=== PATIENT | male | born 1970 | race Caucasian/White ===

== ENCOUNTER 2017-10-10 08:52 | Inpatient (IN) | payer BC, OTHER ==
[~2017-10-10] VITALS: Ht 175.3 cm; Wt 79.4 kg
[2017-10-10] MEDS ORDERED: LOPERAMIDE HCL 2 MG CAPSULE PO PRN ×2 (09:45)
[2017-10-10] MEDS ORDERED: LORAZEPAM 1 MG TABLET PO PRN ×2 (09:45)
[2017-10-10] MEDS ORDERED: MIRALAX 17 GM POWD.PACK PO PRN (09:45)
[2017-10-10] MEDS ORDERED: THIAMINE HCL 200 MG/2 ML VIAL IM ONE (09:45)
[2017-10-10] MEDS ORDERED: IBUPROFEN 600 MG TABLET PO PRN (09:45)
[2017-10-10] MEDS ORDERED: ONDANSETRON ODT 4 MG TAB.RAPDIS SL PRN (09:45)
[2017-10-10] MEDS ORDERED: DICYCLOMINE HCL 20 MG TABLET PO PRN (09:45)
[2017-10-10] MEDS ORDERED: LORAZEPAM 2 MG/1 ML VIAL IM PRN (09:45)
[2017-10-10] MEDS ORDERED: MAGNESIUM HYDROXIDE 30 ML LIQUID UDC PO PRN (09:45)
[2017-10-10] MEDS ORDERED: ACETAMINOPHEN 325 MG TABLET PO PRN (09:45)
[2017-10-10] MEDS ORDERED: diphenhydrAMINE 50 MG CAPSULE PO PRN (09:45)
[2017-10-10] MEDS ORDERED: ONDANSETRON 4 MG/2 ML VIAL IM PRN (09:45)
[2017-10-10] MEDS ORDERED: MAG HYDROX/AL HYDROX/SIMETH 30 ML LIQUID UDC PO PRN (09:45)
--- NOTE | 2017-10-10 09:50 | NUR ---
Preadmission Note: Pt is 47M, AOx4. Pt reported NKA. Pt observed to be very anxious, with racing thoughts but still motivated to be in treatment. Pt stable at this time and able to answer assessment questions. Pt reports hx of drinking white wine. No medical hx or previous seizures reported. Instructed pt about unit policies and procedures. Pt verbalized understanding. Will admit to [facility].
--- NOTE | 2017-10-10 10:00 | NUR ---
Admission Assessment; Patient is a 47 year old male, A/O x4, appears well nourished and is dressed appropriately. Patient admitted to [facility] for medically supervised withdrawal from ETOH. Patient appears nervous, anxious, flushed face noted, intermittent perspiration,Tremors noted, teary eyes, Appears older than age stated. Patient has poor eye contact, fearful, worried,verbalized feelings of guilt and shame but remained cooperative during nurse assessment. Patient denies history of hypertension/cardiac disorder, patient verbalized "I am very nervous right now, my vital signs might be elevated but it's usually WNL". Admitting vital signs are as follows; BP 142/90, HR 120, Temperature 97.6, respirations of 18, Spo2 98% on room air, denies pain. Patient denies history of seizures and denies any allergies. Discussed substance use history. Patient started drinking ETOH when he was 17 year old, progressed to daily use 3 years ago. Since then he has been drinking White Wine approximately 1-3 bottles /day (750ml bottle), last drank 10/09/17 at 7PM patient reported drinking 2 750ml bottles of wine last night. Patient struggled with multiple attempts on achieving sobriety. Patient achieved 5 years of sobriety from [id number]. Most recent sobriety was from 2017 until September 27, 2017. At this rate patient has been drinking on daily basis for the past 2 weeks. During his periods of sobriety patient experienced tremors, anxiety and agitation. Patient has never been to detox or outpatient treatment before. Patient stated "I enjoy drinking wine after a long day of work, but for the past 2 weeks i have been drinking a lot more. Drinking ETOH has been affecting my work performance and i cannot let this addiction affect my career, i worked hard to be in my position . I need help, i need to fix my life". Triggers for relapse includes, availability of ETOH. Patient also stated "Also my friends are alcoholics". Patient is open to post treatment discharge options and is motivated to remain sober. Discussed medical and psychiatric history. He reported that he is taking Multivitamin 1 tab PO daily and Fish oil 1000mg daily for supplement. Patient did not bring medications mentioned. Patient reported family history of diabetes and hypertension. Patient denies other medical /psychiatric condition. Skin check done. Small redness noted on back of patient right leg, site is intact. Bruised toe also noted on patient's left foot. Site is intact. Oriented patient to unit. Educated patient regarding the importance of compliance to unit protocol and policies, patient verbalized understanding. He denies having PCP or psychiatrist. Patient is admitted to room 329 under the care of Dr. Pruett. Patient is currently showing s/s of withdrawals with CIWA score of 14, reported to MD. All safety measures secured. Will continue to monitor patient. Addendum: 10/10/17 at 1544 by MEHUL HARDEN LVN Patient denies suicidal ideations.
--- NOTE | 2017-10-10 10:05 | NUR ---
PRN Medication; Patient is currently showing s/s of withdrawals manifested by increased anxiety, restlessness, agitation, intermittent perspiration, stomach cramps, visible tremors, headache, unable to sit still, difficulty concentrating, racing thoughts with CIWA score of 14. made aware. ordered PRN Ativan 1mg PO for CIWA of 14. All safety measures secured. Will continue to monitor patient.
[2017-10-10 10:22] LABS: BASOPHILS # (AUTO) 0.1 K/uL (0.0-8.0); BASOPHILS % (AUTO) 1.4 % (0.0-2.0); EOSINOPHILS % (AUTO) 0.7 % (0.0-7.0); HEMATOCRIT 46.1 % (36.7-47.1); HEMOGLOBIN 15.7 g/dL (12.5-16.3); LYMPHOCYTES # (AUTO) 1.2 K/uL (20.0-40.0); LYMPHOCYTES % (AUTO) 19.8 % (20.5-51.5); MEAN CORPUSCULAR HEMOGLOBIN 31.7 uug (23.8-33.4); MEAN CORPUSCULAR HGB CONC 34 g/dL (32.5-36.3); MEAN CORPUSCULAR VOLUME 92.8 fL (73.0-96.2); MONOCYTES # (AUTO) 0.5 K/uL (2.0-10.0); MONOCYTES % (AUTO) 7.4 % (0.0-11.0); NEUTROPHILS # (AUTO) 4.4 K/uL (1.8-8.9); NEUTROPHILS % (AUTO) 70.7 % (38.5-71.5); PLATELET COUNT (AUTO) 65 K/uL (152-348); RED BLOOD CELL COUNT(AUTO) 4.97 MIL/uL (4.06-5.63); WHITE BLOOD COUNT (AUTO) 6.2 K/uL (3.6-10.2)
[2017-10-10 10:27] LABS: *AMPHETAMINE, URINE NEGATIVE (NEGATIVE); *BARBITURATE, URINE NEGATIVE (NEGATIVE); *CANNABINOID, URINE NEGATIVE (NEGATIVE); *COCCAINE, URINE NEGATIVE (NEGATIVE); *OPIATE, URINE NEGATIVE (NEGATIVE); *PHENCYCLIDINE SCREEN,URINE NEGATIVE (NEGATIVE)
[2017-10-10 10:36] LABS: BILIRUBIN,TOTAL 0.8 mg/dL (0.2-1.0); CREATININE 0.9 mg/dL (0.6-1.3); MAGNESIUM 1.5 mg/dL (1.8-2.4); POTASSIUM 3.1 mmol/L (3.5-5.1)
[2017-10-10 10:47] LABS: THYROID STIMULATING HORMONE 1.156 mIU/mL (0.358-3.740)
--- NOTE | 2017-10-10 11:05 | NUR ---
Re-assessment; Patient current CIWA score remained elevated manifested by anxiety, agitation, intermittent perspiration, stomach cramps, tremors headache, difficulty concentrating. MD on unit to evaluate patient.
[2017-10-10] MEDS ORDERED: MULT1TAB73 PO (11:22)
[2017-10-10] MEDS ORDERED: OMEG1CAP GT (11:22)
[2017-10-10 12:00] VITALS: BP 138/95
--- NOTE | 2017-10-10 12:00 | NUR ---
CIWA assessment; Patient is currently showing s/s of withdrawals manifested by increased anxiety, restlessness, agitation, intermittent perspiration, stomach cramps, visible tremors, headache, unable to sit still, difficulty concentrating, racing thoughts with CIWA score of 13. Patient received PRN medication to help reduce withdrawal symptoms.
[2017-10-10 12:19] LABS: BAND % (MANUAL) 2 % (0-10); EOSINOPHILS % (MANUAL) 1 % (0-8); LYMPHOCYTES % (MANUAL) 21 % (20-40); MONOCYTES % (MANUAL) 6 % (2-10); NEUTROPHILS % (MANUAL) 70 % (42-75)
[2017-10-10] MEDS ORDERED: 5 DAY TAPER OF LORAZEPAM -SERENITY PROTOCOL PO PRN (12:45)
[2017-10-10] MEDS ORDERED: POTASSIUM CHLORIDE 20 MEQ TAB.PRT.SR PO ONE (13:00)
[2017-10-10] MEDS ORDERED: MAGNESIUM OXIDE 400 MG TABLET PO ONE (13:00)
[2017-10-10] MEDS: LORAZEPAM 1 MG TABLET PO SCH ×3 (13:25→22:03)
--- NOTE | 2017-10-10 13:25 | NUR ---
K-dur, magnesium and taper medication; Patient's potassium level is low 3.1 and magnesium level of 1.5. MD made aware. MD ordered K-dur 40meq PO one time and Mag-ox 400mg PO one time for supplement. MD also started patient on 4 day Ativan taper to help prevent withdrawal symptoms. Medications given as ordered.
[2017-10-10 16:00] VITALS: BP 145/92
--- NOTE | 2017-10-10 16:00 | NUR ---
CIWA assessment; Patient is currently showing s/s of withdrawals manifested by increased anxiety, restlessness, agitation, intermittent perspiration, stomach cramps, visible tremors, headache, unable to sit still, difficulty concentrating, racing thoughts , headache with CIWA score of 16. Patient received PRN and scheduled medications to help reduce withdrawal symptoms. Patient was also started on a 5 day Ativan taper. Will continue to monitor patient.
--- NOTE | 2017-10-10 18:39 | NUR ---
End of shift note; Patient is AOX4, presented with anxiety, restlessness, agitation, intermittent perspiration, stomach cramps, visible tremors, headache, unable to sit still, difficulty concentrating, racing thoughts , headache, last CIWA score of 18 noted at 1600. Patient was started on a 4 day Ativan taper to help manage withdrawal symptoms. Patient received PRN Ativan 1mg for CIWA of 14 noted to be effective. Potassium and magnesium were supplemented by K-dur and Mag -ox per MD order. Patient remained compliant with treatment plan and medication regime. Encouraged patient to verbalized feelings and to report any further s/s of withdrawals. Medications were effective in reducing withdrawal symptoms. All safety measures secured. Met all needs.
--- NOTE | 2017-10-10 19:25 | NUR ---
START OF SHIFT Patient is a 47-year-old male admitted this morning, 10/10/17, for ETOH withdrawal. Patient is currently on a 4-day Ativan taper, tolerating well. Patients last CIWA was 18 per endorsement. Patient received PRN Ativan 1mg once today; noted to be effective. Upon assessment, patient appears flushed, disheveled and diaphoretic. Patient has gross tremors and is visibly tired. Patient is alert and oriented x4 and his gait is mostly steady but patient needs to walk slowly to keep his balance. Patient is quiet and withdrawn. Patient is on fall and seizure precautions with no history of seizure. Safety measures in place, side rails up x2, bed locked in low position, call light within reach. Will continue to monitor.
[2017-10-10 20:00] VITALS: BP 146/98
--- NOTE | 2017-10-10 20:00 | NUR ---
CIWA DEFERRED CIWA deferred at this time due to patient sleeping; to be assessed and scored while patient is awake. Safety measures in place, side rails up x2, bed locked in low position, call light within reach. Will continue to monitor.
--- NOTE | 2017-10-10 22:00 | NUR ---
CIWA 21 Patient is awake and requested snacks from the kitchen. Patient is diaphoretic, flushed, and tremulous. Patient reports "moderate tingling" around his nose and cheeks. Current CIWA is 21. SN to administer meds as ordered. Safety measures in place, call light within reach. Will continue to monitor.
[2017-10-10] MEDS: CLONIDINE HCL 0.1 MG TABLET PO PRN (22:03)
--- NOTE | 2017-10-10 22:03 | NUR ---
PRN CLONIDINE Patient has a BP of 146/98, HR 101. PRN Clonidine given PO. Safety measures in place, side rails up x2, bed locked in low position, call light within reach. Will monitor for effectiveness.
--- NOTE | 2017-10-10 23:03 | NUR ---
PRN CLONIDINE REASSESSMENT Patient has a BP of 124/82, HR 94. PRN Clonidine was effective. Safety measures in place, side rails up x2, bed locked in low position, call light within reach. Will continue to monitor.
[2017-10-11] VITALS: BP_SYST 121; BP_SYST 135; BP_DIAS 78; BP_DIAS 89
--- NOTE | 2017-10-11 | NUR ---
CIWA DEFERRED CIWA deferred due to patient sleeping; to be assessed and scored while patient is awake. Safety measures in place, side rails up x2, bed locked in low position, call light within reach. Will continue to monitor.
[2017-10-11 04:00] VITALS: BP 123/81
--- NOTE | 2017-10-11 04:00 | NUR ---
CIWA DEFERRED CIWA deferred at this time due to patient sleeping; to be assessed while patient is awake, per protocol. Respirations even and unlabored. Safety measures in place, call light within reach. Will continue to monitor.
[2017-10-11 07:26] LABS: BASOPHILS # (AUTO) 0.1 K/uL (0.0-8.0); BASOPHILS % (AUTO) 1.2 % (0.0-2.0); EOSINOPHILS # (AUTO) 0.2 K/uL (0.0-0.7); EOSINOPHILS % (AUTO) 4.2 % (0.0-7.0); HEMOGLOBIN 15.4 g/dL (12.5-16.3); LYMPHOCYTES # (AUTO) 1.1 K/uL (20.0-40.0); LYMPHOCYTES % (AUTO) 23.1 % (20.5-51.5); MEAN CORPUSCULAR HEMOGLOBIN 32.1 uug (23.8-33.4); MEAN CORPUSCULAR HGB CONC 35 g/dL (32.5-36.3); MONOCYTES # (AUTO) 0.5 K/uL (2.0-10.0); MONOCYTES % (AUTO) 10.6 % (0.0-11.0); NEUTROPHILS # (AUTO) 2.8 K/uL (1.8-8.9); NEUTROPHILS % (AUTO) 60.9 % (38.5-71.5); PLATELET COUNT (AUTO) 50 K/uL (152-348); WHITE BLOOD COUNT (AUTO) 4.7 K/uL (3.6-10.2)
[2017-10-11 07:27] LABS: HEMATOCRIT 44.2 % (36.7-47.1)
[2017-10-11 07:30] LABS: BILIRUBIN,TOTAL 0.9 mg/dL (0.2-1.0); CREATININE 0.9 mg/dL (0.6-1.3); POTASSIUM 4.1 mmol/L (3.5-5.1); TOTAL PROTEIN, SERUM 6.5 g/dL (6.4-8.2)
--- NOTE | 2017-10-11 07:30 | NUR ---
Start of shift note; Received report from night nurse. Patient is a 47 y/o male admitted on 10/10/17 for ETOH withdrawals. Patient is AOX4, presented with anxiety, restlessness, agitation, appears older than age stated, intermittent perspiration, stomach cramps, visible tremors, headache, unable to sit still, difficulty concentrating, racing thoughts , headache, shows feelings of shame and guilt, last CIWA score of 21 per endorsement. Patient was started on a 4 day Ativan taper to help manage withdrawal symptoms. Patient received PRN Clonidine not elevated BP noted to be effective per endorsement. Patient slept for 8 hours. All safety measures secured. Will continue to monitor patient.
--- NOTE | 2017-10-11 07:30 | NUR ---
END OF SHIFT Patient is a 47-year-old male admitted yesterday, 10/10/17, for ETOH withdrawal. Patient is currently on a 4-day Ativan taper, tolerating well; today will be second day of taper. Patients last CIWA was 21. Patient received PRN Clonidine for elevated BP; noted to be effective. Patient slept for 8 hours, total intake of 1,000mL, void x1, stool x0. Patient is on fall and seizure precautions with no history of seizure. Safety measures in place, side rails up x2, bed locked in low position, call light within reach. Will endorse to day shift.
[2017-10-11 08:00] VITALS: BP 138/92
--- NOTE | 2017-10-11 08:00 | NUR ---
CIWA assessment; Patient is AOx4, currently showing s/s of withdrawals manifested by increased anxiety, restlessness, agitation, intermittent perspiration, stomach cramps, visible tremors, headache, unable to sit still, difficulty concentrating, racing thoughts , headache with CIWA score of 21. Patient to receive scheduled medications to help reduce withdrawal symptoms. Notified MD regarding patient's LAB results. Will continue to monitor patient.
[2017-10-11 09:00] LABS: BAND % (MANUAL) 5 % (0-10); BASOPHILS % (MANUAL) 1 % (0-2); EOSINOPHILS % (MANUAL) 5 % (0-8); LYMPHOCYTES % (MANUAL) 20 % (20-40); MONOCYTES % (MANUAL) 8 % (2-10); NEUTROPHILS % (MANUAL) 61 % (42-75)
[2017-10-11] MEDS ORDERED: MULTIVITAMINS,THERAPEUTIC TABLET PO SCH (09:00)
[2017-10-11] MEDS ORDERED: TUBERCULIN,PURIF.PROT.DERIV. 5 TU/0.1 ML TEST ID ONE (09:00)
[2017-10-11] MEDS ORDERED: Medication Not On Formulary EA (Multivitamins (Multivitamin) 1 TAB) PO SCH (09:00)
[2017-10-11] MEDS: MULTIVITAMINS,THERAPEUTIC TABLET PO SCH (09:15)
[2017-10-11] MEDS: LORAZEPAM 1 MG TABLET PO SCH ×4 (09:16→20:56)
[2017-10-11] MEDS: OMEGA-3 FATTY ACIDS/FISH OIL CAPSULE PO SCH (09:16)
[2017-10-11] MEDS: THIAMINE HCL 100 MG TABLET PO SCH (09:16)
[2017-10-11] MEDS: FOLIC ACID 1 MG TABLET PO SCH (09:17)
[2017-10-11 12:00] VITALS: BP 138/89
--- NOTE | 2017-10-11 12:00 | NUR ---
CIWA assessment; Patient is AOx4, currently showing s/s of withdrawals manifested by increased anxiety, restlessness, agitation, intermittent perspiration, stomach cramps, visible tremors, headache, unable to sit still, difficulty concentrating, racing thoughts , headache with CIWA score of 19. Patient received scheduled medications to help reduce withdrawal symptoms. Will continue to monitor patient.
[2017-10-11 13:09] LABS: HEPATITIS B SURFACE AG Negative (Negative)
[2017-10-11 16:00] VITALS: BP 118/90
--- NOTE | 2017-10-11 16:00 | NUR ---
CIWA assessment; Patient is AOx4, currently showing s/s of withdrawals manifested by increased anxiety, restlessness, agitation, intermittent perspiration, stomach cramps, visible tremors, headache, unable to sit still, difficulty concentrating, racing thoughts , headache with CIWA score of 18. Patient received scheduled medications to help reduce withdrawal symptoms. Will continue to monitor patient.
--- NOTE | 2017-10-11 19:03 | NUR ---
End of shift note; Patient is AOX4, presented with anxiety, restlessness, agitation, intermittent perspiration, stomach cramps, visible tremors, headache, unable to sit still, difficulty concentrating, racing thoughts , headache, last CIWA score of 18 noted at 1600. Patient was placed on a 4 day Ativan taper to help manage withdrawal symptoms. Patient remained compliant with treatment plan and medication regime. Encouraged patient to verbalized feelings and to report any further s/s of withdrawals. Encouraged patient to participate in group therapies. Medications were effective in reducing withdrawal symptoms. All safety measures secured. Met all needs.
--- NOTE | 2017-10-11 19:30 | NUR ---
START OF SHIFT Pt is a 47 y/o male admitted for ETOH withdrawals. Patient is A/A/O X 4, continues on Ativan taper as ordered and is tolerating well. Pt presented with anxiety, restlessness and generalized aches and pain. Last CIWA score was 18 at 1600. Pt remains compliant with treatment plan and medication regime. No PRN medications were given during the day.Pt is to be NPO after midnight for abdominal ultrasound tomorrow .Pt encouraged patient to verbalize needs and concerns and to report any s/s of withdrawals. All safety measures in place. Bed on lowest position with side rails x2 up for safety. Call light within reach, will continue to monitor.
[2017-10-11 20:00] VITALS: BP 135/89
--- NOTE | 2017-10-11 21:17 | NUR ---
PRN IMODIUM Pt c/o having diarrhea,stated that he had 5-6 loose stools today.Imodium 4 mg PO given per orders;PO fluids encouraged, will continue to monitor.
--- NOTE | 2017-10-11 22:00 | NUR ---
ABDOMINAL U/S Pt informed about abdominal ultrasound to be done in the morning and advised not to eat or drink after midnight.Pt verbalizes understanding.
--- NOTE | 2017-10-11 22:15 | NUR ---
PRN REASSESSMENT Pt stated he had an episode of diarrhea immediately after Imodium was given.No c/o diarrhea noted at this time,will continue to monitor.
[2017-10-12] VITALS: BP 139/80
--- NOTE | 2017-10-12 | NUR ---
CIWA DEFERRED. Pt is resting comfortable in bed with eyes closed;breathing is even and non labored; no s/s of distress noted; CIWA deferred due to patient being asleep;all safety measures in place, will continue to monitor.
[2017-10-12 04:00] VITALS: BP 126/87
--- NOTE | 2017-10-12 06:51 | NUR ---
END OF SHIFT Pt is a 47 y/o male admitted for ETOH withdrawals. Patient is A/A/O X 4, continues on Ativan taper as ordered and is tolerating well. Pt presented with anxiety, restlessness and generalized aches and pain. Last CIWA score was 18 at 1999. Pt remains compliant with treatment plan and medication regime. PRN medications Imodium was given for c/o diarrhea x 1 and was effective.Pt has been NPO after midnight for abdominal ultrasound today .Pt slept 8 hrs,fluid intake was 1000 mls,voided x 1,has B/M x2. All safety measures in place. Bed on lowest position with side rails x2 up for safety. Call light within reach, will endorse care to day shift nurse.
[2017-10-12 07:31] LABS: BASOPHILS % (AUTO) 0.7 % (0.0-2.0); EOSINOPHILS # (AUTO) 0.3 K/uL (0.0-0.7); EOSINOPHILS % (AUTO) 5.9 % (0.0-7.0); HEMATOCRIT 47.9 % (36.7-47.1); HEMOGLOBIN 16.4 g/dL (12.5-16.3); LYMPHOCYTES # (AUTO) 1.7 K/uL (20.0-40.0); LYMPHOCYTES % (AUTO) 28.6 % (20.5-51.5); MEAN CORPUSCULAR HEMOGLOBIN 31.8 uug (23.8-33.4); MEAN CORPUSCULAR HGB CONC 34 g/dL (32.5-36.3); MEAN CORPUSCULAR VOLUME 93.1 fL (73.0-96.2); MONOCYTES # (AUTO) 0.6 K/uL (2.0-10.0); MONOCYTES % (AUTO) 9.9 % (0.0-11.0); NEUTROPHILS # (AUTO) 3.2 K/uL (1.8-8.9); NEUTROPHILS % (AUTO) 54.9 % (38.5-71.5); PLATELET COUNT (AUTO) 56 K/uL (152-348); RED BLOOD CELL COUNT(AUTO) 5.15 MIL/uL (4.06-5.63); WHITE BLOOD COUNT (AUTO) 5.8 K/uL (3.6-10.2)
[2017-10-12 07:37] LABS: BILIRUBIN,TOTAL 0.6 mg/dL (0.2-1.0); MAGNESIUM 1.8 mg/dL (1.8-2.4); POTASSIUM 3.4 mmol/L (3.5-5.1); TOTAL PROTEIN, SERUM 7.6 g/dL (6.4-8.2)
--- NOTE | 2017-10-12 07:58 | NUR ---
START OF SHIFT NOTE Received report from night nurse, 47 year old male admitted for ETOH withdrawal patient continues on Ativan taper tolerating well. Per endorsement patient received PRN Imodium effective per night nurse, last CIWA score was 18, slept for 8 hours. Received patient alert awake anxious, agitation, bilateral hand termones noted,light headed, numbness and tingling on bilateral hands.Educated patient importance of attending groups and activities with good verbal understanding. All safety measures in place, Call light within reach. Will cont to monitor.
[2017-10-12 08:00] VITALS: BP 160/106
--- NOTE | 2017-10-12 08:00 | NUR ---
CIWA SCORE CIWA score 15, Patient presented with anxiety, agitation, restless, sweats, patient is due for scheduled medications. Will cont to monitor.
[2017-10-12] MEDS: FOLIC ACID 1 MG TABLET PO SCH (08:35)
[2017-10-12] MEDS: THIAMINE HCL 100 MG TABLET PO SCH (08:36)
[2017-10-12] MEDS: MULTIVITAMINS,THERAPEUTIC TABLET PO SCH (08:36)
[2017-10-12] MEDS: OMEGA-3 FATTY ACIDS/FISH OIL CAPSULE PO SCH (08:36)
[2017-10-12] MEDS: CLONIDINE HCL 0.1 MG TABLET PO PRN (08:36)
[2017-10-12] MEDS: LORAZEPAM 1 MG TABLET PO SCH ×3 (08:36→21:09)
--- NOTE | 2017-10-12 08:36 | NUR ---
PRN CLONIDINE Patient's blood noted 162/106, PRN clonidine 0.1mg PO as ordered. Will cont to monitor and reassess the patient.
[2017-10-12 08:54] LABS: BAND % (MANUAL) 0 % (0-10); BASOPHILS % (MANUAL) 0 % (0-2); EOSINOPHILS % (MANUAL) 4 % (0-8); LYMPHOCYTES % (MANUAL) 29 % (20-40); MONOCYTES % (MANUAL) 3 % (2-10); NEUTROPHILS % (MANUAL) 64 % (42-75)
--- NOTE | 2017-10-12 09:36 | NUR ---
CLONIDINE REASSESSMENT Blood pressure noted 139/94, clonidine was effective.
[2017-10-12 12:00] VITALS: BP 138/87
--- NOTE | 2017-10-12 12:00 | NUR ---
CIWA SCORE CIWA score 14, patient continues to presents anxiety, agitation, restless, sweats, bilateral hand tremors. Will cont to monitor.
--- NOTE | 2017-10-12 15:55 | NUR ---
Clinical Therapy Note: Met with patient in his room where he was sad and tearful. Pt. is showing some insight into his alcoholism and recognizes he needs treatment. He commented " I know I cannot stop drinking when I start but I keep doing it." He was prompted to attend groups but at this point wants to stay in his room. He responded well to one to one intervention and wanted to know when this clinician would return. Advised him she would check in with him tomorrow too. Group attendance was encouraged. Patient is very open to an aftercare program. Shae will meet with him to discuss this. Patient's mood is depressed with congruent affect. He cried a lot in this casualty underwriter's presence. He is not suicidal. He has a good support system and says his uncle drove him to [facility]. Patient commented " I have a great job and career and many people who love me. Why do I keep drinking?" Psychoeducation regarding alcohol dependence was provided to the patient. This is his first attempt at hospital detox. he says he usually did this at home after a [place]. He got less and less control over his binges. Pt. says he would stay home over vacations and just drink. Patient's request to meet with HR from his employer was passed on to MAISHA Marquez technology administrator. Patient is concerned about his work status.
[2017-10-12 16:00] VITALS: BP 145/98
--- NOTE | 2017-10-12 16:00 | NUR ---
CIWA ASSESSMENT CIWA score noted 12, patient reported decreased in anxiety, agitation, restless.Patient reported detox medication are effective with evidence of low CIWA score 12. Will to monitor.
--- NOTE | 2017-10-12 19:00 | NUR ---
END OF SHIFT NOTE Gave report to night nurse, 47 year old male admitted for ETOH withdrawal and continues with Ativan taper tolerating well. Patient continues to anxiety, agitation, restless, labile facial expression, anhedonia, unkempt room, diaphoretic, bilateral hand tremors noted. patient was given scheduled medications and PRN Clonidine 0.1mg PO noted to be effective. Encourage PO fluids as tolerated. Last CIWA score was 12. Encourage patient to attend groups activities to learn new coping skills. All safety measures in place, call light within reach. Patient endorse to night nurse in stable condition.
--- NOTE | 2017-10-12 19:30 | NUR ---
START OF SHIFT Pt is a 47 year old male admitted for ETOH withdrawal and continues to be on Ativan taper, tolerating well. Pt received in room continues to c/o anxiety, restlessness,superficially bright and pleasant upon approach .PRN Clonidine 0.1mg PO was given per day shift and noted to be effective. PO fluids encouraged as tolerated. Last CIWA score was 12. Encouraged patient to attend groups activities to learn new coping skills. All safety measures in place, call light within reach, will continue to monitor for safety.
[2017-10-12 20:00] VITALS: BP 152/96
--- NOTE | 2017-10-12 20:00 | NUR ---
CIWA=10 Pt is feeling anxious,restless,c/o having mild tremors and headache.PRN medications offered but Pt refused to take any.No c/o diarrhea noted,will continue to monitor.
[2017-10-12] MEDS ORDERED: POTASSIUM CHLORIDE 20 MEQ TAB.PRT.SR PO ONE (21:15)
[2017-10-13] VITALS (7 sets, daily range): BP systolic 121–156; BP diastolic 77–117
[2017-10-13] MEDS: CLONIDINE HCL 0.1 MG TABLET PO PRN ×2 (00:27→20:10)
--- NOTE | 2017-10-13 00:28 | NUR ---
PRN CLONIDINE GIVEN FOR ANXIETY.B/P=137/89.UQ=[id number].WILL MONITOR FOR EFFECTIVENESS.
--- NOTE | 2017-10-13 01:30 | NUR ---
PRN F/U PRN IS EFFECTIVE.PT IS CALM AND RESTING WITH EYES CLOSED,NO S/S OF ANXIETY N0TED.WILL CONTINUE TO MONITOR.
--- NOTE | 2017-10-13 07:55 | NUR ---
START OF SHIFT NOTE Received report from night nurse, 47 year old male admitted for ETOH withdrawal patient continues on Ativan taper tolerating well. Per endorsement patient received PRN Clonidine effective per night nurse, last CIWA score was 10, slept for 7 hours. Received patient alert awake anxious, agitation, bilateral hand termones noted, light headed, numbness and tingling on bilateral hands. Educated patient importance of attending groups and activities with good verbal understanding. All safety measures in place, Call light within reach. Will cont to monitor.
--- NOTE | 2017-10-13 08:00 | NUR ---
CIWA ASSESSMENT CIWA score 15, Patient presented with anxiety, agitation, restless, sweats, bilateral hand tremors, light headed. Patient is due for scheduled medications. Will cont to monitor.
[2017-10-13] MEDS: THIAMINE HCL 100 MG TABLET PO SCH (08:17)
[2017-10-13] MEDS: MULTIVITAMINS,THERAPEUTIC TABLET PO SCH (08:17)
[2017-10-13] MEDS: LORAZEPAM 1 MG TABLET PO SCH ×2 (08:17→20:10)
[2017-10-13] MEDS: FOLIC ACID 1 MG TABLET PO SCH (08:17)
[2017-10-13] MEDS: OMEGA-3 FATTY ACIDS/FISH OIL CAPSULE PO SCH (08:17)
--- NOTE | 2017-10-13 10:13 | NUR ---
Therapist prompted client to attend twice daily group therapy sessions. Client explained that he is feeling very fatigued but that he would try to attend the second therapy group of the day.
--- NOTE | 2017-10-13 12:00 | NUR ---
CIWA SCORE CIWA score 14, Patient continues to exhibits s/s of withdrawal such as anxiety, agitation, restless, sweats, anhedonia, Will cont to monitor.
--- NOTE | 2017-10-13 16:00 | NUR ---
CIWA SCORE CIWA score 12, Patient back from groups, and continues to exhibits s/s of withdrawal such as anxiety, agitation, restless, sweats, bilateral hand tremors noted. Will cont to monitor.
--- NOTE | 2017-10-13 19:19 | NUR ---
END OF SHIFT NOTE Gave report to night nurse, patient continues with Ativan taper tolerating well. Patient presented with anxiety, agitation, restless, anhedonia, bilateral hand tremors, labile facial expression, sweats, patient was given scheduled medications and did not receive any PRN. Patient able to eat 100% of his meals. Encourage pt to attend group activities to learn new coping skills. Encourage PO fluids as tolerated. All safety measures in place, Call light within reach. Patient endorsed to night nurse in stable condition.
--- NOTE | 2017-10-13 19:30 | NUR ---
START OF SHIFT Pt is a 47 y/o male admitted on 10/10/17 for ETOH withdrawal. Pt is on a 4 day Ativan taper, tolerating well. Last CIWA 12 and no PRNs administered during day shift. Upon assessment pt presents with anxiety, restlessness, racing thoughts, disheveled appearance, sweats, flushed skin, intermittent tremors, elevated BP, elevated HR and is withdrawn. Medications due. Safety measures in place. Call light within reach. Will continue to monitor.
--- NOTE | 2017-10-13 20:00 | NUR ---
CIWA 11 Pt presents with anxiety, restlessness, racing thoughts, disheveled appearance, sweats, flushed skin, intermittent tremors, elevated BP, elevated HR and is withdrawn. Pt reports that he sometimes has trouble falling and staying asleep.
--- NOTE | 2017-10-13 20:10 | NUR ---
PRN CLONIDINE ADMINISTRATION BP 156/117 and HR 117. Safety measures in place. Call light within reach. Will continue to monitor.
--- NOTE | 2017-10-13 21:10 | NUR ---
PRN CLONIDINE REASSESSMENT BP 147/102 and HR 89. Pt has improvement in anxiety. Safety measures in place. Call light within reach. Will continue to monitor.
--- NOTE | 2017-10-13 22:18 | NUR ---
PRN BENADRYL ADMINISTRATION Pt requests sleep aid. Pt has difficulty falling asleep. Safety measures in place. Call light within reach. Will continue to monitor.
--- NOTE | 2017-10-13 23:18 | NUR ---
PRN BENADRYL REASSESSMENT Pt remains awake, appears more relaxed. Safety measures in place. Call light within reach. Will continue to monitor.
[2017-10-14] VITALS: BP 119/78
--- NOTE | 2017-10-14 | NUR ---
CIWA 11 Pt presents with anxiety, restlessness, disheveled appearance, sweats, flushed skin, intermittent tremors, and is withdrawn.
--- NOTE | 2017-10-14 04:00 | NUR ---
CIWA DEFERRED AND VITALS REFUSED Pt laying in bed with eyes closed, CIWA deferred, to be assessed when pt is awake per orders. Vitals refused. Respirations even and unlabored. Safety measures in place. Call light within reach. Will continue to monitor.
--- NOTE | 2017-10-14 07:20 | NUR ---
END OF SHIFT Pt is a 47 y/o male admitted on 10/10/17 for ETOH withdrawal. Pt is on a 4 day Ativan taper, tolerating well. Pt presented with anxiety, restlessness, racing thoughts, disheveled appearance, sweats, flushed skin, intermittent tremors, elevated BP, elevated HR and was withdrawn. Scheduled medications and PRN Benadryl administered, effective In S/S of withdrawal as verbalized by pt. Last CIWA 11. Pt slept 7 hours. Intake 1500 ml, void x 3, stool x 0. Safety measures in place. Call light within reach. Pts needs have been met. Endorsed to day shift nurse.
--- NOTE | 2017-10-14 07:30 | NUR ---
Start of Shift Pt. is a 47 y/o male admitted for the medially managed withdrawal from ETOH. Pt. was placed on a 4 day Ativan taper which was completed yesterday 10/13/17. Endorse from previous shift pt. presented with anxiety, restlessness, racing thoughts, disheveled appearance, diaphoresis, flushed skin, intermittent tremors, elevated blood pressure, and withdrawn. PRN Benadryl given during previous shift. Received pt. in room. Pt. in bed covered by his linen. Pt. arousable to name. Encouraged pt. to verbalize concerns and emotions. Pt. states I feel okay, just want to sleep a little more. Last CIWA of 11. Safety measures in place. Will continue to monitor pt.s behavior for safety.
[2017-10-14 08:00] VITALS: BP_SYST 123; BP_SYST 156; BP_DIAS 117; BP_DIAS 84
--- NOTE | 2017-10-14 08:00 | NUR ---
CIWA Assessment CIWA of 7. Pt. presents with restlessness, and anxiety. Pt. compliant with medication regiment. Will continue to monitor pt.'s behavior for safety.
[2017-10-14] MEDS: FOLIC ACID 1 MG TABLET PO SCH (08:45)
[2017-10-14] MEDS: MULTIVITAMINS,THERAPEUTIC TABLET PO SCH (08:45)
[2017-10-14] MEDS: THIAMINE HCL 100 MG TABLET PO SCH (08:45)
[2017-10-14] MEDS: OMEGA-3 FATTY ACIDS/FISH OIL CAPSULE PO SCH (08:45)
[2017-10-14 12:00] VITALS: BP 151/112
--- NOTE | 2017-10-14 12:00 | NUR ---
CIWA Assessment CIWA of 6. Pt. presents with restlessness, and anxiety. Pt. compliant with medication regiment. Will continue to monitor pt.'s behavior for safety.
--- NOTE | 2017-10-14 13:23 | NUR ---
Client was prompted to attend twice daily group therapy sessions.
[2017-10-14] MEDS: CLONIDINE HCL 0.1 MG TABLET PO PRN (13:37)
--- NOTE | 2017-10-14 13:37 | NUR ---
PRN medication Pt.'s BP at this time is 151/112. Gave clonidine 0.1mg PO at this time. Pt. stable and denies pain or an abnormal levels of anxiety. Will continue to monitor pt.'s behavior for safety.
--- NOTE | 2017-10-14 15:00 | NUR ---
PRN Re-Assessment. Pt.'s current BP is 130/90. Medication effective. Will continue to monitor pt.'s behavior for safety.
--- NOTE | 2017-10-14 16:00 | NUR ---
CIWA Assessment CIWA of 7. Pt. presents with restlessness, and anxiety. Pt. compliant with medication regiment. Will continue to monitor pt.'s behavior for safety.
[2017-10-14 16:46] VITALS: BP 139/102
--- NOTE | 2017-10-14 19:21 | NUR ---
End of Shift Pt. is a 47 y/o male admitted for the medially managed withdrawal from ETOH. Pt. was placed on a 4 day Ativan taper which was completed yesterday 10/13/17. Pt. is set to be discharge tomorrow morning to [facility]. Pt. presented throughout shift with anxiety, restlessness, racing thoughts, and elevated blood pressure. Upon approach pt. is pleasant but guarded. PRN clonidine given for elevated BP. CIWA of 6. Safety measures in place. Will endorse pt.s behavior for safety.
--- NOTE | 2017-10-14 19:22 | NUR ---
Start of shift note Received report from day shift nurse. Pt is a 47 yo male, A+Ox4, presenting to [facility] for ETOH withdrawal. Pt noted to be restless, agitated, and anxious. Pt has no medical HX to report. Pt has completed 4 day Ativan taper, tolerated well, and is due for discharge tomorrow. Respirations even and unlabored. Will continue to monitor.
[2017-10-14 20:50] VITALS: BP 143/99
--- NOTE | 2017-10-14 20:50 | NUR ---
CIWA Assessment CIWA: 6. Pt noted with anxiety and agitation. Respirations even and unlabored. Will continue to monitor.
[2017-10-14] MEDS ORDERED: DIPH50CA37 PO (21:35)
[2017-10-14] MEDS ORDERED: CLON0.1T14 PO (21:35)
--- NOTE | 2017-10-15 00:58 | NUR ---
V/S refused and CIWA deferred for sleep. Respirations even and unlabored. Will continue to monitor.
--- NOTE | 2017-10-15 04:34 | NUR ---
V/S refused and CIWA deferred for sleep. Respirations even and unlabored. Will continue to monitor.
--- NOTE | 2017-10-15 07:00 | NUR ---
End of shift note Pt was continuously noted with restlessness, anxiety, and agitation. Pt remained in room for majority of shift except to get food from kitchen, to go smoke on smoking patio, and to interact with other patients in recreational room. Pt remained cooperative and compliant with all aspects of treatment. Pt was not given any PRN medications during shift. Pt has completed 4 day Ativan taper, tolerated well, and is due for discharge today. Pt slept for a total of 4 HRS. Last CIWA: 6 @1999. Respirations even and unlabored. Will endorse to day shift nurse.
[2017-10-15] MEDS: CLONIDINE HCL 0.1 MG TABLET PO PRN (07:55)
[2017-10-15 08:00] VITALS: BP 132/85
--- NOTE | 2017-10-15 08:10 | NUR ---
START OF SHIFT: Received Pt A/O X 4. He presents with anxious mood and withdrawn affect. He states he is motivated to stay sober and will be attending outpatient and attending 12 step meetings. Ativan taper completed. CIWA 6.He reports some anxiety intermittently. Will continue with discharge process.
[2017-10-15] MEDS: MULTIVITAMINS,THERAPEUTIC TABLET PO SCH (08:53)
[2017-10-15] MEDS: FOLIC ACID 1 MG TABLET PO SCH (08:53)
[2017-10-15] MEDS: THIAMINE HCL 100 MG TABLET PO SCH (08:53)
[2017-10-15] MEDS: OMEGA-3 FATTY ACIDS/FISH OIL CAPSULE PO SCH (08:53)
--- NOTE | 2017-10-15 09:55 | NUR ---
DISCHARGE: Pt is A/O X 4. He denies S/I and H/I. He reports he will be going to outpatient therapy and 12 step meetings when he leaves here. Belongings returned. Educated Pt on discharge instructions and medications. Pt expressed verbal understanding of education. He was escorted to [facility] where he was transported by family home at 0951.
== END 2017-10-15 09:51 | disposition home or self-care (01) | DRG 895 ==
LOC: SRC 08:52 → EEVIPCON 08:52
PROVIDERS: ADMIT Family Medicine Addiction Medicine; ATTEND Family Medicine Addiction Medicine
PROC: HZ2ZZZZ Detoxification Services for Substance Abuse Treatment (ICD-10-PCS; principal; 2017-10-10)
PROC: HZ31ZZZ Individual Counseling for Substance Abuse Treatment, Behavioral (ICD-10-PCS; 2017-10-13)
PROC: HZ41ZZZ Group Counseling for Substance Abuse Treatment, Behavioral (ICD-10-PCS; 2017-10-14)
DX: F10.230 Alcohol dependence with withdrawal, uncomplicated (principal); Y90.9 Presence of alcohol in blood, level not specified; E83.42 Hypomagnesemia; Z81.1 Family history of alcohol abuse and dependence; Z87.891 Personal history of nicotine dependence; D69.6 Thrombocytopenia, unspecified; F41.9 Anxiety disorder, unspecified; F11.10 Opioid abuse, uncomplicated
CPT/HCPCS: 36415; 70030-TC; 76700; 80307; 83690; 83735; 84443; 85025; 85610; 85730; 86580; 86592; 86705; 86803; 87340; 87806; A4663; G0480; J3411; Q0163